=== PATIENT | male | born 1970 | race Caucasian/White ===

== ENCOUNTER 2017-02-12 05:43 | Inpatient (IN) | payer BC ==
[~2017-02-12 05:43] MED LIST: ADVAIR 25028 BLISTE1 PO; ASPIR 8181 MG; CARBAMAZEPINE200 M5 PO; CLARITIN-D1 TAB.SR; CPAP; CRESTOR10 M1 PO; DILANTIN100 MG; ELIQUIS5 M1 PO; HYDROCHLOROTHIA25 M1 PO; LAMICTAL25 MG; LAMOTRIGINE200 M2 PO; LOVENOX80 MG/0.1 SC; MULTIVITAMIN1 TAB; MULTIVITAMINS1 EAC6 PO; NUVIGIL150 M1 PO; PROAIR HFA8.5 GM INH; SYMBICORT 16010.2 GM; TEGRETOL200 M1 PO; TEGRETOL200 MG
[2017-02-12 06:40] LABS: INR 1.1 INR (0.9-1.1); PROTHROMBIN TIME 12.2 SECONDS (9.0-13.6)
[2017-02-12 06:46] LABS: ANION GAP 13 mmol/L (0-20); BLOOD UREA NITROGEN 12 mg/dl (6-24); CARBON DIOXIDE-VENOUS 27 mmol/L (22-32); CHLORIDE 104 mmol/l (96-110); CREATININE 0.96 mg/dl (0.60-1.30); GLUCOSE 101 mg/dL (70-110); POTASSIUM 3.9 mmol/L (3.7-5.1); SODIUM 140 mmol/L (135-145); eGFR VALUE FOR BLACK >90 mL/Min
--- NOTE | 2017-02-12 19:50 | NUR ---
VIRTUAL CARE NOTE: PT. IN BED. SHOWS THIS NURSE WHERE HE IS GETTING ON HIS I.S., UP TO THE TOP. VERBAL PRAISE GIVEN AND ENCOURAGEMENT TO COUGH AT TIMES ALSO. EDUCATION PROVIDED ON SPLINTING WHEN COUGHING. O2 IS ON AT 1L PER N/C. EDUCATION PROVIDED THAT WE WILL TRY TO HAVE HIM GET UP TO AMBULATE AT LEAST ONE TIME THIS NIGHT. PT. INFORMED OF NICODERM PATCH ORDER RECEIVED BY ADMIN SECRETARY SURGEON. STATES ALSO WINDOWS ARCHITECT IS HELPING SOME FOR PAIN. EDUCATION PROVIDED WE WOULD HAVE TYLENOL SCHEDULED TO HELP WITH THE PAIN ALSO AND INSTRUCTED TO CALL IF PAIN IS NOT TOLERABLE AND FOR FUTURE NEEDS. STATES VERBAL UNDERSTANDING.
[2017-02-13 04:38] LABS: BASO % 0.1 % (0-2); EOS % 0.7 % (0-7); EOSINOPHIL ABSOLUTE COUNT 0.1 tho/cmm (0.0-0.7); HCT-HEMATOCRIT 36.9 % (36.0-53.5); HGB-HEMOGLOBIN 12.2 gm/dl (13.5-17.0); LYMPH ABSOLUTE COUNT 1.3 tho/cmm (0.8-4.5); MCH (MEAN CORPUSCULAR HGB) 28.7 pg (28.0-32.0); MCHC MEAN CORPUSCULAR HGB CONC 33.1 % (32.0-36.0); MCV (MEAN CELL VOLUME) 86.8 fl (82.0-96.0); MEAN PLATELET VOLUME 9.4 cmc (9.4-12.4); MONO % 11.3 % (0-12); MONOCYTE ABSOLUTE COUNT 0.8 tho/cmm (0.0-1.2); NEUTROPHIL ABSOLUTE COUNT 4.6 tho/cmm (1.6-8.0); NEUTROPHIL-AUTOMATED 4.6 tho/cmm (1.6-8.0); NEUTROPHILS % 68.9 % (40-80); PLATELET COUNT 138 tho/cmm (150-450); RED BLOOD COUNT 4.25 mil/cmm (4.40-5.70); RED CELL DISTRIBUTION WIDTH 14.5 % (12.4-16.4); WHITE BLOOD COUNT 6.7 tho/cmm (4.0-10.0)
[2017-02-13 04:43] LABS: INR 1.1 INR (0.9-1.1); PROTHROMBIN TIME 12.5 SECONDS (9.0-13.6)
[2017-02-13 04:49] LABS: ANION GAP 12 mmol/L (0-20); BLOOD UREA NITROGEN 13 mg/dl (6-24); CARBON DIOXIDE-VENOUS 29 mmol/L (22-32); CHLORIDE 105 mmol/l (96-110); CREATININE 0.93 mg/dl (0.60-1.30); GLUCOSE 112 mg/dL (70-110); POTASSIUM 3.9 mmol/L (3.7-5.1); SODIUM 142 mmol/L (135-145); eGFR VALUE FOR BLACK >90 mL/Min
--- NOTE | 2017-02-13 15:19 | NUR ---
virtual care note: checked in on pt at this time. he states that his pain is "about the same" and that the morphine and hydrocodone weren't doing much to help subside. I notice per scanned orders that they physician has ordered a medication change from norco to percocet, and explain this to the patient. he is hoping this medication change will help. states he is passing gas and that he has been walking laps. also is using his IS several times during television commercial breaks. no nausea, tolerates clear liquids. requests a popsicle. i passed this along to the ORGANIZATION DEVELOPMENT CONSULTANT who states she will bring him one. will continue to monitor. electronic chart reviewed.
[2017-02-14 06:14] LABS: HGB-HEMOGLOBIN 12.8 gm/dl (13.5-17.0); PLATELET COUNT 143 tho/cmm (150-450)
--- NOTE | 2017-02-14 15:41 | NUR ---
VIRTUAL CARE NOTE: CHECKED IN W/ PT AT THIS TIME. HE'S JUST GETTING UP TO GO FOR A WALK. SITTING UP IN HIS RECLINER. STATES HIS CATHETER WAS REMOVED THIS AM AND HE HAS ALREADY FULLY EMPTIED HIS BLADDER SEVERAL TIMES VIA URINAL. STATES HIS ONLY ISSUE IS W/ FEELING BLOATED. ADMITS TO PASSING GAS AND THAT HE'S BEEN ON A FEW WALKS ALREADY THIS SHIFT. ENCOURAGED CONTNUATION OF AMBULATION AND USE OF I.S. CALL LIGHT WITHIN REACH. HAS D/W HIS NURSE HIS CONCERNS RE: BLOATING. WILL CONTINUE TO MONITOR. ELECTRONIC CHART REVIEWED.
--- NOTE | 2017-02-14 20:03 | NUR ---
VIRTUAL CARE NOTE: PT. IN BED, STATES GOT REALLY BLOATED THIS AM AFTER EATING, DIDN'T EAT LUNCH OR SUPPER. ALSO EXPLAINS HAS BEEN WALKING ABOUT FOUR TIMES TODAY. EDUCATION PROVIDED ON REASONING SURGEON PLACED PT. BACK ON CLEAR LIQUIDS UNTIL BOWELS ARE MORE FULLY AWAKE. PT. MENTIONS THAT HIS PAIN ISN'T TOLERABLE AT THIS TIME. RN PAGED. EDUCATION PROVIDED ON PAIN MED OPTIONS. INSTRUCTED TO CALL FOR FURTHER NEEDS. STATES VERBAL UNDERSTANDING.
[2017-02-15 06:05] LABS: HCT-HEMATOCRIT 39.7 % (36.0-53.5); HGB-HEMOGLOBIN 13.3 gm/dl (13.5-17.0); MCV (MEAN CELL VOLUME) 86.9 fl (82.0-96.0); RED CELL DISTRIBUTION WIDTH 14.3 % (12.4-16.4)
--- NOTE | 2017-02-15 09:23 | NUR ---
TALITA HUTCHINS-VISITED WITH PATIENT AND WE TALKED ABOUT HIM BEING ON FULL LIQUIDS YESTERDAY AND GOT BLOATED SO IS NOW BACK TO CLEARS. STATES HE IS FEELING BETTER BUT IS STILL A LITTLE BLOATED AND HAVING VERY LITTLE GAS. PATIENT HAS NO OTHER QUESTIONS OR CONCERNS AT THIS TIME.
--- NOTE | 2017-02-15 21:35 | NUR ---
VIRTUAL CARE NOTE: PT. IN BED, STATES IS FEELING FRUSTRATED BECAUSE HE'S NOT ABLE TO HAVE A BOWEL MOVEMENT, AND OR PASS FLATUS TODAY. REASSURANCE GIVEN THE PT. IS DOING EVERYTHING CORRECT WITH WALKING AND COUGHING AND DEEP BREATHING. EDUCATION PROVIDED THAT 3- 5 DAYS FOR BOWELS TO WAKE UP AFTER SURGERY IS AN AVERAGE. VERBAL ENCOURAGEMENT GIVEN. PT. STATES IS HAVING SORENESS TO INCISION SITE, OTHERWISE IS TOLERATING FLUIDS OK. RN PAGES. INSTRUCTED TO CALL FOR FUTURE NEEDS. STATES VERBAL AGREEMENT.
[2017-02-16 04:23] LABS: HGB-HEMOGLOBIN 13.1 gm/dl (13.5-17.0); PLATELET COUNT 140 tho/cmm (150-450)
--- NOTE | 2017-02-16 11:28 | NUR ---
VIRTUAL CARE NOTE: PT AWAIT, RESTING IN BED. PT HAVING CL FOR LUNCH, ORDER REVIEWED TO ADVANCE TO FL-DISCUSSED W/ PT. PT DENIES N/V, ABD DISTENTION, REQUEST FOR PUDDING PAGED TO HAMMER OPERATOR. PT DENIES QUESTIONS/CONCERNS AT THIS TIME. VN WILL CONTINUE TO MONITOR ELECTRONIC RECORD AND FOLLOW W/ PT
[2017-02-17] MEDS ORDERED: PERCOCET 7.5-31 EAC1 PO (15:37)
[2017-02-17] MEDS ORDERED: STOP HOME MEDICATION (15:38)
--- NOTE | 2017-02-17 21:44 | NUR ---
VIRTUAL CARE NOTE: ASSESSMENT DEFERRED. PT EITHER WITH STAFF OR NOT IN ROOM. WILL CONTINUE WITH CHART REVIEW.
[2017-02-18 04:46] LABS: HGB-HEMOGLOBIN 14.2 gm/dl (13.5-17.0); PLATELET COUNT 177 tho/cmm (150-450)
== END 2017-02-18 11:10 | DRG 699 ==
LOC: SHSC 05:43 → ORW 07:32 → PACU 11:20 → 5WD 13:35
PROVIDERS: Anesthesiology; Surgery; ADMIT Surgery
PROC: 0DBN4ZX Excision of Sigmoid Colon, Percutaneous Endoscopic Approach, Diagnostic (ICD-10-PCS; principal; 2017-02-12)
PROC: 0T788DZ Dilation of Bilateral Ureters with Intraluminal Device, Via Natural or Artificial Opening Endoscopic (ICD-10-PCS; 2017-02-12)
PROC: 8E0W4CZ Robotic Assisted Procedure of Trunk Region, Percutaneous Endoscopic Approach (ICD-10-PCS; 2017-02-12)
DX: N32.1 Vesicointestinal fistula (principal); D68.51 Activated protein C resistance; G40.909 Epilepsy, unspecified, not intractable, without status epilepticus; E78.00 Pure hypercholesterolemia, unspecified; G47.33 Obstructive sleep apnea (adult) (pediatric); I10 Essential (primary) hypertension; F17.220 Nicotine dependence, chewing tobacco, uncomplicated; J45.909 Unspecified asthma, uncomplicated; Z86.718 Personal history of other venous thrombosis and embolism; Z86.73 Personal history of transient ischemic attack (TIA), and cerebral infarction without residual deficits; Z79.01 Long term (current) use of anticoagulants; Z79.891 Long term (current) use of opiate analgesic; Z79.899 Other long term (current) drug therapy
CPT/HCPCS: C1769; J0131; J1170; J1335; J1644; J1650; J1885; J2250; J2270; J2405; J3010; J7030; J7121; Q9967